=== PATIENT | female | born 1935 | race African-American/Black ===

== ENCOUNTER 2023-10-23 14:45 | Outpatient (AMB) | payer OTHER, SELFPAY ==
--- NOTE | 2023-10-23 14:47 | A.OFFVIS_ITS ---
Vital Signs 10/23/23 14:56 BP 112/62 Blood Pressure Location Lt brachial Position Sitting Respiration 16 Pulse 68 Pulse Source Palpation Intake Visit Reasons: ENP: Dementia/Senile - Confirmed Intake Note: Pt presents tot the office for new pt evaluation for Dementia. 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 SHe resides at [facility] - after she had been discharged from [place] 3 weeks ago. She was admitted after a fall. SHe lives with her daughter who helps with history today . she was diagnosed with dementia 2 years ago and has been progressing since then . Currently she needs help with all her ADL. she has agitation , behavior issues, confused with her own family etc. she has trouble sleeping at night . she can fall asleep but wake sup in the middle of the night and cannot sleep after. she has visual hallucinations. Her gait is better since she has been at rehab. No further history was obtainable. [facility] Medical History Chronic kidney disease Osteoarthritis HTN (hypertension) Psychosis Alzheimer's dementia Insomnia Social History Household Members: Family Household Members Other:: Daughter- Cynthia Caregiver staying overnight: Yes Housing: House Alcohol intake: former Comment: Hasn't drank in a year Patient Tobacco Use Status: Former Tobacco user Years Smoked: Quit a year ago Physical Exam Vital Signs: Last Vital Signs Pulse 68 10/23/23 14:56 Resp 16 10/23/23 14:56 BP 112/62 10/23/23 14:56 Const Other: she had difficulty following instructions, made eye contact did not do well on MMSE General: cooperative, healthy appearing and comfortable Nutritional Appearance: average body habitus Neuro General: moves all extremities, no focal motor deficits and Unable to assess gait Cranial nerves: Yes Facial sensation intact/muscles of mastication intact, Yes Nystagmus not present, Yes Normal facial strength present and Yes Midline tongue present Cognition (Neuro): abnormal cognition Gait exam (Neuro): Unable to assess gait Motor exam (neuro): Normal motor muscle tone present throughout Deep tendon reflexes (DTR's): Right triceps reflex intensity grade: 2+, Left triceps reflex intensity grade: 2+, Rt Biceps (C5, C6): 2+, Left biceps reflex intensity grade: 2+, Right brachioradialis reflex intensity grade: 2+, Left brachioradialis reflex intensity grade: 2+, Right patellar reflex intensity grade: 2+ and Left patellar reflex intensity grade: 2+ Orientation Where are we (state) (county) (town or city) (hospital) (floor)?: state, town or city and hospital/clinic Score Score: 3 Assessment & Plan Assessment & Plan (1) Alzheimer's dementia: Comment: advanced Code(s): G30.9 - Alzheimer's disease, unspecified; F02.80 - Dementia in other diseases classified elsewhere, unspecified severity, without behavioral disturbance, psychotic disturbance, mood disturbance, and anxiety Category: Medical (2) Psychosis: Comment: related to dementia Code(s): F29 - Unspecified psychosis not due to a substance or known physiological condition Category: Medical (3) Insomnia: Comment: relate dto her dementia Code(s): G47.00 - Insomnia, unspecified Category: Medical Plan Increase mirtazepine 15 mg qhs Continue quetiapine 50mg bid donepezil 10 mg qhs consider Geripsych referral for behavior management Coding Level of Care Code New Pt Level 4 (58527) Diagnoses Alzheimer's dementia G30.9; F02.80 Psychosis F29 Insomnia G47.00
[2023-10-23 14:56] VITALS: BP 112/62; PULSE 68; RESP 16
== END 2023-10-23 15:25 | disposition home or self-care (01) ==
PROVIDERS: PCP Internal Medicine; Visit Provider Psychiatry & Neurology Neurology
DX: G30.9 Alzheimer's disease, unspecified (principal); F02.80 Dementia in other diseases classified elsewhere, unspecified severity, without behavioral disturbance, psychotic disturbance, mood disturbance, and anxiety; F29 Unspecified psychosis not due to a substance or known physiological condition; G47.00 Insomnia, unspecified
CPT/HCPCS: 99204

== ENCOUNTER → 2023-10-23 14:45 | Outpatient (BNVA) | payer OTHER, SELFPAY | PROVIDERS: PCP Internal Medicine; Visit Provider Psychiatry & Neurology Neurology | DX: G30.9 Alzheimer's disease, unspecified (principal); F02.80 Dementia in other diseases classified elsewhere, unspecified severity, without behavioral disturbance, psychotic disturbance, mood disturbance, and anxiety; F29 Unspecified psychosis not due to a substance or known physiological condition; G47.00 Insomnia, unspecified; Z79.899 Other long term (current) drug therapy | CPT/HCPCS: 99202 ==